=== PATIENT | female | born 1970 | race Caucasian/White ===

== ENCOUNTER 2021-01-20 00:27 | Emergency (ER) | payer BC ==
[2021-01-20] MEDS ORDERED: HYDROCODONE-AC1 EACH PO ×2 (05:35→16:28)
[2021-01-20] MEDS ORDERED: ROBAXIN 750 MG750 MG PO (05:35)
== END 2021-01-20 05:48 | disposition home or self-care (01) ==
LOC: ER1 00:27
DX: M54.32 Sciatica, left side (principal); Z90.710 Acquired absence of both cervix and uterus
CPT/HCPCS: 73502; 96372; 99283; J2360